=== PATIENT | female | born 1970 | race Caucasian/White ===

== ENCOUNTER 2019-10-24 10:19 | Emergency (ER) | payer BC ==
--- NOTE | 2019-10-24 10:51 | EDPHYS ---
Physician Documentation [facility] Name: Yamilka Gant Age: 49 yrs Sex: Female : 1970 Arrival Date: 10/24/2019 Time: 10:21 Bed 18 Private MD: Augie Cornelius T ED Physician Raulito Leary HPI: 10/24 10:45 This 49 yrs old Female presents to ER via Ambulatory with complaints of pm1 Insect Bite, Leg Swelling. 10:45 The patient was bitten on the medial aspect of right calf, by possible insect, for an pm1 unknown reason, at work. Onset: The symptoms/episode began/occurred 1 week(s) ago. Secondary to the bite the patient reports itchy rash with blistering. Associated signs and symptoms: Pertinent negatives: fever, tenderness, pain. Severity of symptoms: in the emergency department the symptoms are actually worse. The patient has been recently seen by a physician: the patient's primary care provider, Dr. Cornelius with similar presenting complaints, Patient reports that insect bite has blisters with swelling. Patient was sitting at her desk at work and felt a possible insect bite about 1 week ago. Went to her PCP on and was prescribed cefuroxime and triamcinolone. Reports no improvement and site looks worse. No fever or pain present. Rash is itchy. 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 - Social history:: Smoking status: Patient/guardian denies using tobacco. - Ebola Screening: : No symptoms or risks identified at this time. ROS: 10:45 Constitutional: Negative for fever, chills, and weight loss, Cardiovascular: Negative pm1 for chest pain, palpitations, and edema, Respiratory: Negative for shortness of breath, cough, wheezing, and pleuritic chest pain, Abdomen/GI: Negative for abdominal pain, nausea, vomiting, diarrhea, and constipation, MS/Extremity: Negative for injury and deformity. 10:45 Skin: Positive for swelling, of the medial aspect of right calf, itching, blisters. 10:45 Neuro: Negative for numbness, tingling. 10:45 All other systems are negative. Exam: 10:45 Constitutional: This is a well developed, well nourished patient who is awake, alert, pm1 and in no acute distress. Head/Face: Normocephalic, atraumatic. Chest/axilla: Normal chest wall appearance and motion. Nontender with no deformity. No lesions are appreciated. Cardiovascular: Regular rate and rhythm with a normal S1 and S2. No gallops, murmurs, or rubs. Normal PMI, no JVD. No pulse deficits. Respiratory: Lungs have equal breath sounds bilaterally, clear to auscultation and percussion. No rales, rhonchi or wheezes noted. No increased work of breathing, no retractions or nasal flaring. 10:45 Musculoskeletal/extremity: Extremities: grossly normal except: mild swelling to area of rash, ROM: intact in all extremities, Circulation is intact in all extremities. Sensation intact. 10:45 Skin: Appearance: normal except for affected area, vesicular rash with surrounding redness. No discharge or abscess present. 10:45 Neuro: Orientation: is normal, Motor: is normal, moves all fours. Vital Signs: 10:28 BP 140 / 89; Pulse 105; Resp 16; Temp 98.2; Pulse Ox 99% ; Weight 96.16 kg; Height 5 sv ft. 3 in. (160.02 cm); Pain 0/10; 10:28 Body Mass Index 37.55 (96.16 kg, 160.02 cm) sv MDM: 10:28 Patient medically screened. [facility] 10:45 Data reviewed: vital signs. Data interpreted: Pulse oximetry:. Counseling: I had a pm1 detailed discussion with the patient and/or guardian regarding: the historical points, exam findings, and any diagnostic results supporting the discharge/admit diagnosis, the need for outpatient follow up, to return to the emergency department if symptoms worsen or persist or if there are any questions or concerns that arise at home. 11:15 ED course: Patient with vesicular rash to right lower extremity. Possibly herpes zoster pm1 but no pain present. Patient reports itchiness. Redness surrounding vesicles therefore will treat as cellulitic. Will prescribe bactrim and Bactroban to take with the medications prescribed by her PCP. Administered Medications: 11:08 Drug: Bactrim (160 mg-800 mg (DS) 1 tablet Route: PO; aj1 11:09 Follow up: Response: No adverse reaction aj1 Disposition: 10/24/19 10:50 Discharged to Home. Impression: Cellulitis of right lower limb. - Condition is Stable. - Discharge Instructions: Insect Bite, Cellulitis, Adult. - Prescriptions for Bactroban 2 % Topical Ointment - Apply to affected area 1 application by TOPICAL route every 12 hours; 30 gram. Bactrim DS 800- 160 mg Oral Tablet - take 1 tablet by ORAL route every 12 hours for 10 days; 20 tablet. - Medication Reconciliation Form, Thank You Letter, Antibiotic Education, Prescription Opioid Use form. - Follow up: Emergency Department; When: As needed; Reason: Worsening of condition. Follow up: Private Physician; When: 2 - 3 days; Reason: Recheck today's complaints, Continuance of care, Re-evaluation by your physician. - Problem is new. - Symptoms have improved. Addendum: 10/26/2019 10:15 Co-signature as Attending Physician, Raulito Leary MD I agree with the assessment and c donohue plan of care. Signatures: Vaishnavi Rosario RN RN aj1 Katherine An RN RN sv Anderson, Corey, MD MD cha Marinas, Patrick, DEVELOPING MACHINE TENDER DEVELOPING MACHINE TENDER pm1 Corrections: (The following items were deleted from the chart) 10/24 11:10 10:50 10/24/2019 10:50 Discharged to Home. Impression: Cellulitis of right lower limb. aj1 Condition is Stable. Forms are Medication Reconciliation Form, Thank You Letter, Antibiotic Education, Prescription Opioid Use. Follow up: Emergency Department; When: As needed; Reason: Worsening of condition. Follow up: Private Physician; When: 2 - 3 days; Reason: Recheck today's complaints, Continuance of care, Re-evaluation by your physician. Problem is new. Symptoms have improved. pm1
--- NOTE | 2019-10-24 10:51 | ER ---
Nurse's Notes [facility] Name: Yamilka Gant Age: 49 yrs Sex: Female : 1970 Arrival Date: 10/24/2019 Time: 10:21 Bed 18 Private MD: Augie Cornelius T Diagnosis: Cellulitis of right lower limb Presentation: 10/24 10:21 Presenting complaint: Patient states: RLE bite by unknown insect 1 week ago, saw her sv PCP and was prescribed Cefuroxime and Triamcinolone, swelling and redness have increased. Transition of care: patient was not received from another setting of care. Onset of symptoms was October 17, 2019. Risk Assessment: Do you want to hurt yourself or someone else? Patient reports no desire to harm self or others. Initial Sepsis Screen: Does the patient meet any 2 criteria? HR > 90 bpm. No. Patient's initial sepsis screen is negative. Does the patient have a suspected source of infection? Yes: Skin breakdown/wound. Care prior to arrival: None. 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 - Social history:: Smoking status: Patient/guardian denies using tobacco. - Ebola Screening: : No symptoms or risks identified at this time. Screenin:29 Abuse screen: Denies threats or abuse. Denies injuries from another. Nutritional aj1 screening: No deficits noted. Tuberculosis screening: No symptoms or risk factors identified. Assessment: 10:29 General: Appears in no apparent distress. comfortable, Behavior is calm, cooperative, aj1 appropriate for age. Pain: Complains of pain in medial aspect of right calf. Neuro: Level of Consciousness is awake, alert, obeys commands, Oriented to person, place, time, situation. Cardiovascular: Patient's skin is warm and dry. Respiratory: Airway is patent Respiratory effort is even, unlabored, Respiratory pattern is regular, symmetrical. GI: No signs and/or symptoms were reported involving the gastrointestinal system. : No signs and/or symptoms were reported regarding the genitourinary system. EENT: No signs and/or symptoms were reported regarding the EENT system. Derm: Skin is intact, Skin is redness and blistering noted to right lower leg. Patient states that she has been taking antibiotics, but it has not been getting any better. Musculoskeletal: No signs and/or symptoms reported regarding the musculoskeletal system. Circulation, motion, and sensation intact. Vital Signs: 10:28 BP 140 / 89; Pulse 105; Resp 16; Temp 98.2; Pulse Ox 99% ; Weight 96.16 kg; Height 5 sv ft. 3 in. (160.02 cm); Pain 0/10; 10:28 Body Mass Index 37.55 (96.16 kg, 160.02 cm) sv ED Course: 10:21 Patient arrived in ED. as 10:21 Arm band placed on Patient placed in an exam room, on a stretcher. sv 10:22 Augie Cornelius MD is Private Physician. as 10: [facility] pm1 10:27 Raulito Leary MD is Attending Physician. pm1 10: Triage completed. sv 10:29 Vaishnavi Rosario RN is Primary Nurse. aj1 10:29 Patient has correct armband on for positive identification. Bed in low position. Call aj1 light in reach. 10:29 No provider procedures requiring assistance completed. aj1 11:09 Patient did not have IV access during this emergency room visit. aj1 Administered Medications: 11:08 Drug: Bactrim (160 mg-800 mg (DS) 1 tablet Route: PO; aj1 11:09 Follow up: Response: No adverse reaction aj1 Outcome: 10:50 Discharge ordered by . pm1 11:09 Discharged to home ambulatory. aj1 11:09 Condition: good 11:09 Discharge instructions given to patient, Instructed on discharge instructions, follow up and referral plans. medication usage, Demonstrated understanding of instructions, follow-up care, medications, Prescriptions given X 2. 11:10 Patient left the ED. aj1 Signatures: Vaishnavi Rosario RN RN aj1 Katherine An RN RN sv Martinez, Amelia as Stu Sidhu NP PUBLIC TRANSPORTATION INSPECTOR pm1
[2019-10-24] MEDS ORDERED: SMZ./TMP. 800/160 MG TABLET ONE (11:08)
[2019-10-24 11:26] VITALS: BP 140/89; TEMP 98.2; O2SAT 99
== END 2019-10-24 11:10 | disposition home or self-care (01) ==
LOC: ER 10:19
DX: L03.115 Cellulitis of right lower limb (principal); E03.9 Hypothyroidism, unspecified
CPT/HCPCS: 99283